=== PATIENT | male | born 1955 | race Caucasian/White ===

== ENCOUNTER 2019-06-13 07:08 | Outpatient (CLI) | payer BC, OTHER ==
[~2019-06-13] VITALS: Ht 188 cm; Wt 104.3 kg
[2019-06-13] MEDS ORDERED: albuterol 2.5 MG/3 ML nebule NEB ONE (08:10)
== END 2019-06-13 23:59 | disposition home or self-care (01) ==
LOC: RT 07:08
PROVIDERS: ATTEND Internal Medicine Pulmonary Disease
DX: J44.9 Chronic obstructive pulmonary disease, unspecified (principal)
CPT/HCPCS: 94060; 94727; 94729; 94760